=== PATIENT | female | born 1980 | race Caucasian/White ===

== ENCOUNTER 2016-06-26 10:58 | Outpatient (CLI) | payer OTHER | END 2016-06-26 10:59 | disposition home or self-care (01) | DX: G47.10 Hypersomnia, unspecified (principal); G47.00 Insomnia, unspecified; G47.8 Other sleep disorders ==

== ENCOUNTER 2016-08-02 21:55 | Outpatient (CLI) | payer OTHER | END 2016-08-02 21:56 | disposition home or self-care (01) | LOC: SC 21:55 | PROVIDERS: ATTEND Internal Medicine Pulmonary Disease | DX: G47.10 Hypersomnia, unspecified (principal); G47.61 Periodic limb movement disorder | CPT/HCPCS: 95810 ==

== ENCOUNTER 2016-09-11 09:08 | Outpatient (CLI) | payer OTHER | END 2016-09-11 09:09 | disposition home or self-care (01) | LOC: SC 09:08 | PROVIDERS: ATTEND Nurse Practitioner Family | DX: G47.10 Hypersomnia, unspecified (principal); G47.61 Periodic limb movement disorder; G47.00 Insomnia, unspecified | CPT/HCPCS: 99212; 99214 ==

== ENCOUNTER 2019-04-02 08:17 | Day surgery (SDC) | payer OTHER ==
[2019-04-02] MEDS ORDERED: MIDAZOLAM 2 MG/2 ML VIAL IVP ONE (08:18)
[2019-04-02] MEDS ORDERED: fentaNYL 250 MCG/5 ML VIAL IVP ONE (08:18)
[2019-04-02] MEDS ORDERED: LACTATED RINGERS 1,000 ML IV ONE (09:04)
[2019-04-02 10:48] VITALS: BP 108/80
== END 2019-04-02 08:18 | disposition home or self-care (01) ==
LOC: SDS 08:17
PROVIDERS: ATTEND Surgery
PROC: 0DBE8ZX Excision of Large Intestine, Via Natural or Artificial Opening Endoscopic, Diagnostic (ICD-10-PCS; principal; 2019-04-02 10:15)
DX: K52.9 Noninfective gastroenteritis and colitis, unspecified (principal); R10.10 Upper abdominal pain, unspecified; Z87.891 Personal history of nicotine dependence
CPT/HCPCS: 45380; J3010; J7120

== ENCOUNTER 2019-04-04 11:22 | Outpatient (CLI) | payer OTHER | END 2019-04-04 11:23 | disposition home or self-care (01) | LOC: LAB 11:22 | PROVIDERS: ATTEND Internal Medicine Gastroenterology | DX: R19.7 Diarrhea, unspecified (principal) | CPT/HCPCS: 36415; 82784; 83516 ==